=== PATIENT | male | born 1995 | race African-American/Black ===

== ENCOUNTER 2020-10-29 20:02 | Emergency (ER) | payer OTHER ==
[~2020-10-29] VITALS: Ht 182.9 cm; Wt 75.3 kg
[2020-10-29 20:18] VITALS: Ht 182.9 cm; Wt 75.3 kg
[2020-10-29 22:29] VITALS: BP 106/87
== END 2020-10-29 22:29 | disposition home or self-care (01) ==
LOC: ED 20:02
DX: S61.257A Open bite of left little finger without damage to nail, initial encounter (principal); W54.0XXA Bitten by dog, initial encounter; Y93.89 Activity, other specified; Y92.89 Other specified places as the place of occurrence of the external cause; Y99.8 Other external cause status
CPT/HCPCS: 90715